=== PATIENT | male | born 1985 | race Caucasian/White ===

== ENCOUNTER 2017-10-03 20:39 | Inpatient (IN) | payer MEDICARE ==
[~2017-10-03] VITALS: Ht 182.9 cm; Wt 239.5 kg
[2017-10-03 21:14] LABS: HEMATOCRIT 37.7 % (42.0-54.0); HEMOGLOBIN 12.2 g/dL (13.5-17.5); MCH 26.5 pg (26.0-34.0); MCHC 32.4 g/dL (31.0-37.0); PLATELET COUNT 229 10x3/uL (130-400); RDW 14.8 % (11.5-14.5); WBC 24.8 10x3/uL (4.8-10.8)
[2017-10-03 21:24] LABS: INR 1.41 (0.85-1.17); PROTIME 16.8 SECONDS (11.6-15.0)
[2017-10-03 21:30] LABS: ALBUMIN 2.8 g/dL (3.4-5.0); ALKALINE PHOSPHATASE 75 U/L (46-116); ALT (SGPT) 36 U/L (10-68); CALC OSMOLALITY 271 mosm/kg (275-300); CALCIUM 8.5 mg/dL (8.5-10.1); CARBON DIOXIDE 22.7 mmol/L (21.0-32.0); CHLORIDE - SERUM 99 mmol/L (98-107); CREATININE - SERUM 1.9 mg/dL (0.6-1.3); GLUCOSE 123 mg/dL (74-106); POTASSIUM - SERUM 3.8 mmol/L (3.5-5.1); PROTEIN - SERUM 7.4 g/dL (6.4-8.2); SODIUM 132 mmol/L (136-145); UREA NITROGEN 29 mg/dL (7-18); eGFR NON AFRICAN AMERICAN 44 mL/min (90-120)
[2017-10-03 21:34] LABS: LYMPHOCYTES 6 % (15-50); NEUTROPHILS 93 % (40-80); PLATELET ESTIMATE NORMAL
[2017-10-03 21:35] LABS: ROULEAUX OCC
[2017-10-03 21:44] LABS: APPEARANCE HAZY (CLEAR); BILIRUBIN NEGATIVE (NEGATIVE); COLOR DK YELLOW (YELLOW); GLUCOSE NEGATIVE (NEGATIVE); KETONE NEGATIVE (NEGATIVE); NITRITE NEGATIVE (NEGATIVE); PROTEIN 1+ mg/dL (NEGATIVE); SPECIFIC GRAVITY 1.025 (1.005-1.020); UROBILINOGEN NORMAL (NORMAL)
[2017-10-03 21:47] LABS: WHITE CELLS - URINE 0-5 /hpf (0-5)
[2017-10-03 21:48] LABS: BACTERIA MODERATE /hpf (NONE SEEN); HYALINE CAST 0-5 /lpf (NONE SEEN); MUCUS <1+ /lpf (NONE SEEN); RED CELLS - URINE OCC /hpf (0-5)
[2017-10-03 21:49] LABS: CREATINE KINASE 470 UL (21-232); MAGNESIUM - SERUM 1.2 mg/dL (1.8-2.4); PRO BNP 307 pg/mL (0-125); TROPONIN-I < 0.017 ng/mL (0.000-0.060)
[2017-10-03 21:51] LABS: CKMB 0.3 U/L (0.0-3.6)
[2017-10-03 23:47] LABS: UDS - AMPHET NEGATIVE QUAL (NEGATIVE); UDS - BARB NEGATIVE QUAL (NEGATIVE); UDS - BENZO NEGATIVE QUAL (NEGATIVE); UDS - COCAINE NEGATIVE QUAL (NEGATIVE); UDS - OPIATE NEGATIVE QUAL (NEGATIVE); UDS - PCP NEGATIVE QUAL (NEGATIVE); UDS - THC NEGATIVE QUAL (NEGATIVE)
[2017-10-04] VITALS (23 sets, daily range): BP systolic 110–164; BP diastolic 61–107; Ht 182.9 cm; Wt 239.5 kg
[2017-10-05] VITALS (21 sets, daily range): BP systolic 97–133; BP diastolic 57–94
[2017-10-05 03:08] LABS: BASOPHILS 0.1 % (0-2); EOSINOPHILS 0.1 % (0-7); HEMATOCRIT 32.6 % (42.0-54.0); HEMOGLOBIN 10.4 g/dL (13.5-17.5); IMMATURE GRANULOCYTES 0.5 % (0-5); LYMPHOCYTES 9.9 % (15-50); MCH 26.3 pg (26.0-34.0); MCHC 31.9 g/dL (31.0-37.0); MCV 82.3 fL (80.0-100.0); MEAN PLATELET VOLUME 10.1 fL (7.4-10.4); MONOCYTES 5.2 % (2-11); NEUTROPHILS 84.2 % (40-80); PLATELET COUNT 207 10x3/uL (130-400); RBC 3.96 10x6/uL (4.20-6.10)
[2017-10-05 03:09] LABS: WBC 17.6 10x3/uL (4.8-10.8)
[2017-10-05 03:48] LABS: ALBUMIN 2.1 g/dL (3.4-5.0); ALKALINE PHOSPHATASE 76 U/L (46-116); ALT (SGPT) 30 U/L (10-68); AMYLASE - SERUM 25 U/L (25-115); BILIRUBIN - TOTAL 0.42 mg/dL (0.2-1.3); CALCIUM 8.3 mg/dL (8.5-10.1); CARBON DIOXIDE 25.5 mmol/L (21.0-32.0); CHLORIDE - SERUM 102 mmol/L (98-107); CHOL - HDL RATIO 7.1 ratio (2.3-4.9); CHOLESTEROL, TOTAL 92 mg/dL (0-200); GLUCOSE 119 mg/dL (74-106); HDL CHOLESTEROL 13 mg/dL (32-96); LDL CHOLESTEROL 57 mg/dL (0-100); LDL-HDL RATIO 4.4 ratio (1.5-3.5); LIPASE 344 U/L (73-393); PHOSPHOROUS 2.4 mg/dL (2.5-4.9); POTASSIUM - SERUM 3.3 mmol/L (3.5-5.1); PRO BNP 85 pg/mL (0-125); PROTEIN - SERUM 7.2 g/dL (6.4-8.2); SODIUM 137 mmol/L (136-145); TRIGLYCERIDE 114 mg/dL (30-200); eGFR NON AFRICAN AMERICAN 75 mL/min (90-120)
[2017-10-05 03:51] LABS: CALC OSMOLALITY 276 mosm/kg (275-300); CREATININE - SERUM 1.2 mg/dL (0.6-1.3); MAGNESIUM - SERUM 2.2 mg/dL (1.8-2.4); UREA NITROGEN 18 mg/dL (7-18)
[2017-10-06] VITALS (8 sets, daily range): BP systolic 113–132; BP diastolic 62–95
[2017-10-06 01:18] LABS: APPEARANCE HAZY (CLEAR); BACTERIA NONE SEEN /hpf (NONE SEEN); BILIRUBIN NEGATIVE (NEGATIVE); COLOR YELLOW (YELLOW); EPITHELIAL CELLS NSEEN /hpf (0-5); GLUCOSE NEGATIVE (NEGATIVE); KETONE NEGATIVE (NEGATIVE); NITRITE NEGATIVE (NEGATIVE); PROTEIN TRACE mg/dL (NEGATIVE); UROBILINOGEN NORMAL (NORMAL); WHITE CELLS - URINE 0-5 /hpf (0-5)
[2017-10-07 00:24] VITALS: BP 128/71
[2017-10-07 05:31] VITALS: BP 153/83
[2017-10-07 05:46] LABS: BASOPHILS 0.5 % (0-2); EOSINOPHILS 1.8 % (0-7); HEMATOCRIT 31.2 % (42.0-54.0); HEMOGLOBIN 9.9 g/dL (13.5-17.5); IMMATURE GRANULOCYTES 1.6 % (0-5); LYMPHOCYTES 18.8 % (15-50); MCH 26.3 pg (26.0-34.0); MCHC 31.7 g/dL (31.0-37.0); MEAN PLATELET VOLUME 10.2 fL (7.4-10.4); NEUTROPHILS 71.3 % (40-80); PLATELET COUNT 208 10x3/uL (130-400); RBC 3.76 10x6/uL (4.20-6.10); RDW 15.3 % (11.5-14.5); WBC 9.9 10x3/uL (4.8-10.8)
[2017-10-07 06:14] LABS: ALBUMIN 1.9 g/dL (3.4-5.0); ALKALINE PHOSPHATASE 64 U/L (46-116); ALT (SGPT) 35 U/L (10-68); CALC OSMOLALITY 287 mosm/kg (275-300); CALCIUM 8.2 mg/dL (8.5-10.1); CARBON DIOXIDE 26.3 mmol/L (21.0-32.0); CHLORIDE - SERUM 110 mmol/L (98-107); CREATININE - SERUM 0.7 mg/dL (0.6-1.3); GLUCOSE 97 mg/dL (74-106); POTASSIUM - SERUM 3.7 mmol/L (3.5-5.1); PROTEIN - SERUM 6.3 g/dL (6.4-8.2); SODIUM 145 mmol/L (136-145); UREA NITROGEN 10 mg/dL (7-18); eGFR NON AFRICAN AMERICAN > 90 mL/min (90-120)
[2017-10-07 08:00] VITALS: BP 150/86
[2017-10-07 11:50] VITALS: BP 137/65
[2017-10-07 15:11] VITALS: BP 141/86
[2017-10-08] VITALS: BP 140/80
[2017-10-08 05:18] VITALS: BP 136/85
[2017-10-08 06:45] LABS: BASOPHILS 0.3 % (0-2); HEMOGLOBIN 9.8 g/dL (13.5-17.5); IMMATURE GRANULOCYTES 2.8 % (0-5); LYMPHOCYTES 19.3 % (15-50); MCH 26.3 pg (26.0-34.0); MCHC 31.6 g/dL (31.0-37.0); MCV 83.3 fL (80.0-100.0); MEAN PLATELET VOLUME 10.1 fL (7.4-10.4); MONOCYTES 7.1 % (2-11); NEUTROPHILS 68.5 % (40-80); RBC 3.72 10x6/uL (4.20-6.10); RDW 15.4 % (11.5-14.5); WBC 11.2 10x3/uL (4.8-10.8)
[2017-10-08 06:46] LABS: PLATELET COUNT 255 10x3/uL (130-400)
[2017-10-08 07:04] LABS: ALBUMIN 1.9 g/dL (3.4-5.0); ALKALINE PHOSPHATASE 68 U/L (46-116); ALT (SGPT) 32 U/L (10-68); BILIRUBIN - TOTAL 0.31 mg/dL (0.2-1.3); CALC OSMOLALITY 285 mosm/kg (275-300); CALCIUM 8.1 mg/dL (8.5-10.1); CARBON DIOXIDE 25.6 mmol/L (21.0-32.0); CHLORIDE - SERUM 109 mmol/L (98-107); CREATININE - SERUM 0.9 mg/dL (0.6-1.3); GLUCOSE 100 mg/dL (74-106); POTASSIUM - SERUM 3.5 mmol/L (3.5-5.1); PROTEIN - SERUM 7.3 g/dL (6.4-8.2); SODIUM 144 mmol/L (136-145); UREA NITROGEN 9 mg/dL (7-18); eGFR NON AFRICAN AMERICAN > 90 mL/min (90-120)
[2017-10-08] MEDS ORDERED: VIBRAMYCIN 100100 MG PO (10:33)
[2017-10-08] MEDS ORDERED: PROTONIX40 MG PO (10:35)
[2017-10-08 10:52] VITALS: BP 108/76
== END 2017-10-08 14:30 | disposition home or self-care (01) | DRG 602 ==
LOC: D.ER 20:39 → D.EDHOLD 23:12 → D.M2 23:12 → D.ICU 23:12 → D.M2 10-06 19:17
PROVIDERS: Emergency Medicine; Family Medicine Adult Medicine; Internal Medicine Nephrology; Nurse Practitioner Family
PROC: 0T9B70Z Drainage of Bladder with Drainage Device, Via Natural or Artificial Opening (ICD-10-PCS; principal; 2017-10-03)
DX: L03.116 Cellulitis of left lower limb (principal); G93.49 Other encephalopathy; K92.2 Gastrointestinal hemorrhage, unspecified; Z68.44 Body mass index [BMI] 60.0-69.9, adult; L03.115 Cellulitis of right lower limb; E66.01 Morbid (severe) obesity due to excess calories; G47.33 Obstructive sleep apnea (adult) (pediatric); Z91.19 Patient's noncompliance with other medical treatment and regimen; I27.20 Pulmonary hypertension, unspecified; K75.81 Nonalcoholic steatohepatitis (NASH); K64.9 Unspecified hemorrhoids; Z87.820 Personal history of traumatic brain injury